=== PATIENT | female | born 1995 ===

== ENCOUNTER 2018-04-28 13:59 | Emergency (ER) | payer BC ==
[2018-04-28 14:19] VITALS: BP 101/69; PULSE 69; RESP 16; TEMP 98.2; O2SAT 98
--- NOTE | 2018-04-28 15:04 | C.PDOC ---
History Of Present Illness 23 y/o female presents to ED with c/o swelling and pain to left upper back for 1 week. Patient states she works at both [employer] and [employer], constantly lifts heavy objects and denies neck pain, abdominal pain, chest pain or any other complaints at this time. Time Seen by Provider: 04/28/18 14:22 Chief Complaint (Nursing): Back Pain History Per: Patient History/Exam Limitations: no limitations Onset/Duration Of Symptoms: Days Current Symptoms Are (Timing): Still Present Quality Of Discomfort: Sharp, "Pain" Associated Symptoms: denies: Incontinence, New Weakness, New Numbness Exacerbating Factor(s): Turning, Movement Recent travel outside of the [place]: No Past Medical History Reviewed: Historical Data, Nursing Documentation, Vital Signs Vital Signs: Last Vital Signs Temp 98.2 F 04/28/18 14:16 Pulse 69 04/28/18 14:16 Resp 16 04/28/18 14:16 BP 101/69 04/28/18 14:16 Pulse Ox 98 04/28/18 16:02 - Medical History PMH: No Chronic Diseases Surgical History: No Surg Hx Family History: States: No Known Family Hx - Social History Hx Alcohol Use: No Hx Substance Use: No Review Of Systems Constitutional: Negative for: Fever, Chills Cardiovascular: Negative for: Chest Pain Gastrointestinal: Negative for: Nausea, Vomiting, Abdominal Pain Musculoskeletal: Positive for: Back Pain. Negative for: Neck Pain Physical Exam - Physical Exam Appears: Non-toxic, No Acute Distress Skin: Warm, Dry, No Rash Head: Atraumatic, Normacephalic Eye(s): bilateral: Normal Inspection Oral Mucosa: Moist Neck: Normal ROM, No Midline Cervical Tenderness, Supple Chest: Symmetrical, No Tenderness Cardiovascular: Rhythm Regular Respiratory: Normal Breath Sounds, No Rales, No Rhonchi, No Wheezing Gastrointestinal/Abdominal: Soft, No Tenderness, No Guarding, No Rebound Back: No CVA Tenderness, Muscle Spasm (left parathoracic spine), No Straight Leg Raising, Other (swelling to parathoracic spine) Extremity: Normal ROM Neurological/Psych: Oriented x3, Normal Speech, Normal Cognition, Normal Motor Gait: Steady ED Course And Treatment O2 Sat by Pulse Oximetry: 98 (RA) Pulse Ox Interpretation: Normal Medical Decision Making Medical Decision Making: On re-exam, the patient is playful and active. Lungs are CTA, heart is RRR, abdomen is soft, non-tender and tolerating PO well. Ambulatory in the ED with steady gait. Follow up with the medical doctor/clinic within 1-2 days. Return if worsened. Disposition - Disposition Referrals: Hunter Castro MD [Non-Staff] - Disposition: HOME/ ROUTINE Disposition Time: 16:00 Condition: GOOD Additional Instructions: Follow up with the medical doctor within 1-2 days. Return if worsened. 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 - Scribe Statement The provider has reviewed the documentation as recorded by the Shilaibflavio Garcia All medical record entries made by the Jamey were at my direction and personally dictated by me. I have reviewed the chart and agree that the record accurately reflects my personal performance of the history, physical exam, medical decision making, and the department course for this patient. I have also personally directed, reviewed, and agree with the discharge instructions and disposition.
--- NOTE | 2018-04-28 15:04 | C.PDOC ---
Time Seen by Provider: 04/28/18 14:22 Chief Complaint (Nursing): Back Pain Past Medical History Vital Signs: Last Vital Signs Temp 98.2 F 04/28/18 14:16 Pulse 69 04/28/18 14:16 Resp 16 04/28/18 14:16 BP 101/69 04/28/18 14:16 Pulse Ox 98 04/28/18 14:16 - Social History Hx Alcohol Use: No Hx Substance Use: No ED Course And Treatment O2 Sat by Pulse Oximetry: 98 Disposition - Disposition
== END 2018-04-28 16:22 | disposition home or self-care (01) ==
LOC: C.ER 13:59
DX: M62.830 Muscle spasm of back (principal)
CPT/HCPCS: 96372; 99284; J1885